=== PATIENT | male | born 1990 | race Caucasian/White ===

== ENCOUNTER 2025-03-13 08:35 | Emergency (ER) | payer OTHER, SELFPAY ==
--- NOTE | 2025-03-13 08:36 | ED_ITS ---
HPI - URI/Sore Throat General Chief Complaint: Upper Respiratory Infection Stated Complaint: Sinus Time Seen by Provider: 03/13/25 08:36 Source: patient Mode of arrival: ambulatory Limitations: no limitations History of Present Illness HPI Narrative: Patient is a 34-year-old male who presents with 3 weeks of of sinus pressure. Patient was seen by PCP over week ago and was told take allergy medicine and use nasal sprays. Patient states since then his symptoms have worsened and now has sore throat and productive cough. Denies any fever, chills, nausea, vomiting, diarrhea. Related Data Home Medications ?Medication ?Instructions ?Recorded ?Confirmed ?Last Taken ?Type bupropion HCl 300 mg 24 hr tablet, mg PO 03/13/25 Unk nown History extended release Allergies Allergy/AdvReac Type Severity Reaction Status Date / Time No Known Allergies Allergy Verified 03/13/25 09:11 Review of Systems Review of Systems: All systems reviewed & are unremarkable except as noted in HPI and below Constitutional: Constitutional: Denies chills, Denies fatigue, Denies fever(s), Denies headache(s), Denies malaise and Denies weakness Eyes: Eyes: Denies blurry vision, Denies itchy eyes and Denies loss of vision ENT: Denies otalgia, Denies headache(s), Reports nasal congestion, Denies sinus pain, Reports sinus pressure and Reports sore throat Cardiovascular: Cardiovascular: Denies chest pain, Denies irregular heart rhythm and Denies dyspnea Respiratory: Respiratory: Reports cough and Denies dyspnea Gastrointestinal: Gastrointestinal: Denies abdominal pain, Denies diarrhea, Denies nausea and Denies vomiting Musculoskeletal: Musculoskeletal: Denies back pain, Denies myalgias and Denies arthralgias Integumentary/Breasts: Skin/Breast: Denies pruritus and Denies rash Neurologic: Denies headache(s), Denies loss of vision and Denies weakness Psychiatric: Psychiatric: Reports no additional psychiatric complaints Endocrine: Endocrine: Denies fatigue Allergic/Immunologic: Allergic/Immunologic: Denies itchy eyes PMFSH Comments At time of signature, agree with nursing past medical, surgical, social and family history. There is no relevant family history pertinent to the presenting complaint. Exam Const: General: cooperative, healthy appearing, comfortable, no acute distress and well nourished Nutritional Appearance: well nourished Orientation/consciousness: patient oriented x3 Limitations: no limitations HENMT: Head: normal to inspection, normocephalic and atraumatic Ears: hearing grossly normal bilaterally, external ears normal, TM's normal bilaterally, EAC's normal and no periauricular adenopathy Face/Nose/Sinus: Normal external nose present, Abnormal mucous membranes and turbinates present erythematous bilateral and diffuse, normal facial exam and face symmetric Face and sinus: normal facial exam, face symmetric and sinus tenderness Mouth: Yes Normal oral and palatal mucosa present, Yes lip normal, Yes tongue normal, Yes Normal salivary glands and ducts present, Yes oropharynx normal and Yes moist mucous membranes Teeth and gingiva: dentition normal Throat: posterior oropharynx normal, tonsils normal and uvula midline Eyes: General: appearance normal, both eyes and all related structures Alignment and Position: alignment normal and position normal Periorbital: periorbital findings normal Eyelids: eyelids normal Pupils: Equal, round and reactive pupils present Neck: Neck: normal visual inspection, full ROM, no lymphadenopathy and supple Chest: Chest palpation & inspection: normal inspection of the chest and normal palpation of entire chest wall Resp: Effort & Inspection: normal respiratory effort and able to speak in complete sentences Auscultation: clear to auscultation bilaterally, no crackles, no rales, no rhonchi and no wheezes Cardio: Rate: regular rate Rhythm: regular rhythm Heart sounds: S1 normal heart sound present and S2 normal heart sound present GI: Inspection: normal to inspection Skin: General skin exam: normal color and no rashes or lesions noted Neuro: General: patient oriented x3 and moves all extremities Cranial nerves: Yes Equal, round and reactive pupils present Speech: normal speech Gait exam (Neuro): Normal gait present Extrem: General: normal to inspection, full ROM and no edema Psych: Appearance: grossly normal and well kempt Mental Status: mental status grossly normal Speech and movement: Normal speech and movement present Affect: normal affect Attitude: cooperative Thought process: Normal thought process present Course Course Emergency Course: Discharge instructions reviewed with patient, as well as provided in writing per nursing staff. The instructions also include specific and strict return/GO TO THE ER as well as f/u information. All questions have been answered, and the patient deny any further questions with discharge and discharge plan. Portions of this record may have been created with voice recognition software Level of Care: Express Care Visit Vital Signs Vital signs: Reviewed [facility] - URI/Sore Throat MDM Narrative Medical decision making narrative: Pt well hydrated appearing, in no respiratory distress, hemodynamically stable. Recommend supportive care. The patient is stable at time of discharge the clinical impression was discussed and the patient was given the opportunity to ask questions, which were addressed as completely as possible given the information available at present. Anticipatory guidance and return to care precautions were discussed and the importance of primary care follow-up was stressed and encouraged. The patient voiced understanding of the plan, indications to return, and the need for follow-up. Exam findings show no acute concerns or changes Patient is appropriate for outpatient treatment and follow-up. Differential diagnosis considered: Diaz virus, strep pharyngitis, allergic rhinitis, upper respiratory tract infection, sinusitis, rhinosinusitis, nasopharyngitis. viral pharyngitis, otitis media, otitis externa, otitis effusion, foreign body, cerumen impaction, viral syndrome, and influenza.? Discharge Plan Discharge Clinical Impression: Upper respiratory infection with cough and congestion, Bacterial infection Patient Disposition: Home Condition: Stable Instructions: Upper Respiratory Infection (ED) Additional Instructions: Take antibiotic as prescribed. Take steroids in the morning with food. Use Tessalon Perles as needed for cough. Use nebulizer as needed. Other symptomatic treatments include: -Alternate Tylenol and Motrin per package directions for fever or pain: Tylenol 650-1000mg by mouth every 4-6 hours. Do not exceed 4000mg in 24 hours. Advil (Ibuprofen) 600 mg by mouth every 6 hours. Do not exceed 2400mg in 24 hours. 8 AM: Tylenol 11 AM: Ibuprofen 2 PM: Tylenol 5 PM: Ibuprofen 8 PM: Tylenol 11 PM: Ibuprofen 2 AM: Tylenol 5 AM: Ibuprofen -Antihistamine medication such as Benadryl at night and Zyrtec/Claritin/Tasha during the day can help improve symptoms. -Use Flonase twice a day for 5 days then daily to help reduce the inflammation and dry up your sinuses. -You can also use Sudafed or Mucinex. Be sure to drink plenty of water with these medications at least 8 ounces with every dose and it is important to drink 8 to 10 glasses of water per day. Water is a natural decongestant -Eat and drink things that are easy to swallow, like tea or soup, or popsicles. -Oral rinses such as: Salt water gargles and/or may use topical anesthetic (eg. Chloraseptic spray) or lozenges to relieve dryness or throat pain). -Frequent hand washing or hand cloth tester is one of the best ways to prevent spread of infection. -Using a vaporizer or humidifier at night will also help thin secretions and help with coughing up phlegm. Call your Primary Care Doctor and make a follow-up appointment in 3 days. If your cough worsens, you develop a fever greater than 103, you develop shaking chills, a fast heartbeat, trouble breathing and/or feel you are are breathing much faster than usual, call your Primary Care Doctor or go to the ER. Patient Language: Wallisian Prescriptions: New albuterol sulfate 2.5 mg /3 mL (0.083 %) solution for nebulization 2.5 mg inhalation Q6H Qty: 90 0RF prednisone 20 mg tablet 40 mg PO DAILY 5 Days Qty: 10 0RF benzonatate 100 mg capsule 100 mg PO BID PRN (Reason: cough) Qty: 14 0RF amoxicillin-pot clavulanate 875-125 mg tablet 1 tablet PO Q12H 10 Days Qty: 20 0RF No Action No Home Medications Follow-up/Referrals: Humza Doe MD [Physician, Ear, Nose, Throat] - 3 Days Mohsen Connolly MD [Physician, Family Practice] - 3 Days Time of Disposition: 09:13
[2025-03-13 08:47] VITALS: BP 126/93; PULSE 66; RESP 16; TEMP 36.5; O2SAT 100
== END 2025-03-13 09:20 | disposition home or self-care (01) ==
PROVIDERS: Emergency Provider Nurse Practitioner Family
DX: J06.9 Acute upper respiratory infection, unspecified (principal); R05.9 Cough, unspecified; B96.89 Other specified bacterial agents as the cause of diseases classified elsewhere
CPT/HCPCS: 99203; G0463

== ENCOUNTER 2025-03-29 15:50 | Emergency (ER) | payer OTHER, SELFPAY ==
[2025-03-29 16:04] VITALS: BP 118/83; PULSE 90; RESP 16; TEMP 37; O2SAT 97
--- NOTE | 2025-03-29 16:40 | ED.URI ---
HPI - URI/Sore Throat General Chief Complaint: Upper Respiratory Infection Stated Complaint: Sinus patient presents to the Care accompanied by family daughters so patient expressed care with of significant return of sinus pressure on left side, nasal congestion, fatigue, and headaches with productive cough. Patient reports recently treated for a sinus infection and completed medications. Noted he does have a history of a deviated septum on this left side he continues to have chronic problems with sinus infections. Reports getting in a nasal spray from the pharmacy and did use that but reports this is draining into the back of his throat unsure if he got the rate nasal spray. Denies fever, chills, body aches, dizziness, shortness of breath, sore throat, difficulty swallowing. Related Data Home Medications ?Medication ?Instructions ?Recorded ?Confirmed ?Last Taken ?Type bupropion HCl 300 mg 24 hr tablet, mg PO 03/13/25 Unknown History extended release Allergies Allergy/AdvReac Type Severity Reaction Status Date / Time No Known Allergies Allergy Verified 03/29/25 16:30 Review of Systems Constitutional: Constitutional: Reports as per HPI, Denies chills, Reports fatigue, Denies fever(s) and Denies weakness Eyes: Eyes: Reports no additional eye complaints ENT: Reports as per HPI, Denies vertigo, Denies dizziness, Reports nasal congestion and Denies sore throat Comments: sinus pain left sided Cardiovascular: Cardiovascular: Reports no additional cardiovascular complaints Respiratory: Respiratory: Reports as per HPI, Reports chest congestion, Reports cough, Denies dyspnea and Denies wheezing Gastrointestinal: Gastrointestinal: Reports as per HPI, Denies diarrhea, Denies nausea and Denies vomiting Genitourinary: Genitourinary: Reports no additional male genitourinary complaints Musculoskeletal: Musculoskeletal: Reports as per HPI, Denies back pain and Denies myalgias Integumentary/Breasts: Skin/Breast: Reports as per HPI, Denies erythema and Denies rash Neurologic: Reports as per HPI, Denies vertigo, Denies dizziness, Reports headache(s) and Denies weakness Psychiatric: Psychiatric: Reports no additional psychiatric complaints Endocrine: Endocrine: Reports no additional endocrine complaints Hematologic/Lymphatic: Hematologic/Lymphatic: Reports no additional hematologic/lymphatic complaints Allergic/Immunologic: Allergic/Immunologic: Reports as per HPI Comments: seasonal allergies, chronic sinusitis Course Course Level of Care: Express Care Visit Vital Signs Vital signs: Vital Signs Temperature 98.6 F 03/29/25 16:04 Pulse Rate 90 03/29/25 16:04 Respiratory Rate 16 03/29/25 16:04 Blood Pressure 118/83 03/29/25 16:04 Pulse Oximetry 97 03/29/25 16:04 Oxygen Delivery Room Air 03/29/25 16:04 Temperature 98.6 F 03/29/25 16:04 Pulse Rate 90 03/29/25 16:04 Respiratory Rate 16 03/29/25 16:04 Blood Pressure 118/83 03/29/25 16:04 Pulse Oximetry 97 03/29/25 16:04 Oxygen Delivery Room Air 03/29/25 16:04 MDM - URI/Sore Throat MDM Narrative Medical decision making narrative: Possible need for follow-up with ENT. Likely needs treatment with a different antibiotic. [facility] History is obtained from patient who is an independent historian and physical exam was performed. Available medical records were reviewed at this time. Exam findings show no acute concerns or changes; patient is non-toxic appearing and is in no distress. Patient is appropriate for outpatient treatment and follow-up. I have evaluated and discussed social determinants of health with the patient that could potentially impact subsequent diagnosis and treatment plans. Differential diagnosis and treatment plan were discussed with the patient. Patient agrees with discussion and after shared medical decision making agrees with plan of care. All questions were answered to the patient's satisfaction. Differential Diagnosis Differential diagnosis: Likely upper respiratory infection, croup, otitis media, sinusitis, viral infection, influenza and pharyngitis Medical Records Attestation: I reviewed the patient's medical records. Lab Data Attestation: I reviewed the patient's lab results. Discharge Plan Discharge Clinical Impression: Sinusitis Patient Disposition: Home Condition: Stable Instructions: Antibiotic Form, Sinusitis (ED) Additional Instructions: Take the antibiotics as directed for the entire course. Do not miss any doses. What you are taking antibiotics and is recommended to take a probiotic or have yogurt daily to return the good gut bacteria to your system. This can also help with acute diarrhea while taking antibiotics. A can take 24-48 hours for the antibiotics the cake in to relieve your symptoms continue to take these medications to help with various symptoms: Tylenol or Motrin for pain, headache, or fever Flonase/fluticasone or Nasacort/triamcinolone nasal spray- helps with congestion and nasal drainage. Sudafed/pseudoephedrine helps with sinus pain and congestion. Caution with high blood pressure. Use a humidifier or vaporizer at night. Drink plenty of water. 8-10 glasses per day. Mucinex/[place] directed and be sure to take with 8oz of water. Warm compresses over the forehead and cheeks to promote sinus drainage. Return to urgent care or go to the ER for new or worsening symptoms. Follow up with Primary provider if not improved after 1 week. Patient Language: Yoruba Prescriptions: New benzonatate 200 mg capsule 200 mg PO TID PRN (Reason: cough) Qty: 30 0RF doxycycline monohydrate 100 mg capsule 100 mg PO BID Qty: 20 0RF pseudoephedrine HCl [Sudafed] 30 mg tablet 30 mg PO Q4-6H PRN (Reason: nasal congestion) Qty: 24 0RF Rx Instructions: DNExceed 4 doses/24h fluticasone propionate [Allergy Relief (fluticasone)] 50 mcg/actuation spray,suspension 2 spray intranasal DAILY Qty: 16 0RF Rx Instructions: administer into each nostril No Action albuterol sulfate 2.5 mg /3 mL (0.083 %) solution for nebulization 2.5 mg inhalation Q6H Qty: 90 0RF benzonatate 100 mg capsule 100 mg PO BID PRN (Reason: cough) Qty: 14 0RF bupropion HCl 300 mg tablet extended release 24 hr PO Follow-up/Referrals: [facility] [Primary Care Provider, Medical] Time of Disposition: 16:45
[2025-03-29 16:48] LABS: EDCOVIDSCREEN Negative (Negative)
== END 2025-03-29 16:52 | disposition home or self-care (01) ==
PROVIDERS: Emergency Provider Nurse Practitioner Family
DX: J32.9 Chronic sinusitis, unspecified (principal); Z20.822 Contact with and (suspected) exposure to COVID-19
CPT/HCPCS: 87426; 99213; G0463

== ENCOUNTER 2025-06-21 08:10 | Emergency (ER) | payer OTHER, SELFPAY ==
[2025-06-21 08:10] VITALS: BP 126/82; PULSE 113; RESP 20; TEMP 37.7; O2SAT 97
--- NOTE | 2025-06-21 08:12 | ED.URI ---
HPI - URI/Sore Throat General Chief Complaint: Upper Respiratory Infection Stated Complaint: flu symptoms Time Seen by Provider: 06/21/25 08:11 Source: patient Mode of arrival: ambulatory Limitations: no limitations History of Present Illness HPI Narrative: Marcin is a 34-year-old male patient presenting to the clinic today with complaints of flu-like symptoms. He reports he has cough, runny nose, fatigue, body aches, and diarrhea since last night. Took tylenol last night. Was in the ED with his daughter two days ago for vomiting and dirrhea. He denies any chest pain or shortness of breath. Related Data Home Medications ?Medication ?Instructions ?Recorded ?Confirmed ?Last Taken ?Type bupropion HCl 300 mg 24 hr tablet, mg PO 03/13/25 Unknown History extended release Allergies Allergy/AdvReac Type Severity Reaction Status Date / Time No Known Allergies Allergy Verified 06/21/25 08:13 Review of Systems Review of Systems: Pertinent positives per HPI. Patient denies any fever, chills, rash, headache, visual changes, dizziness, sore throat, shortness of breath, chest pain, palpitations, nausea, vomiting, constipation, abdominal pain, or any urinary issues. PMFSH Comments At the time of my signature, I reviewed and agree with the nursing past medical, surgical, social, and family history. There is no relevant family history pertinent to the patient complaint. Exam Narrative: General: Well-developed, well nourished, acutely ill-appearing Head: Normocephalic, atraumatic Eyes: Pupils equally round and reactive to light bilaterally, EOM intact, sclera and conjunctive clear, no discharge, lids normal Ears: TMs intact and clear, ear canals ceruminous, no drainage, grossly hearing normal. Nose: Nares patent, clear nasal discharge, mild inflammation, no sinus tenderness. Mouth: Oropharynx without lesions or masses, good dentition, MMM. Postnasal drip Neck: Supple, trachea midline, no enlargement of anterior or posterior cervical nodes, no thyroid masses or goiter palpable. Cardio: Regular rate and rhythm, s1 and s2 normal, no murmur appreciated. Resp: Clear to auscultation bilaterally anteriorly and posteriorly, no rhonchi, rales, wheezing or rubs Abdomen: Soft, pliable, bowel sounds present in all quadrants, non-tender to palpation, no organomegly, no CVAT tenderness. Course Course Level of Care: Express Care Visit Vital Signs Vital signs: Vital Signs Temperature 37.7 C H 06/21/25 08:10 Pulse Rate 113 H 06/21/25 08:10 Respiratory Rate 20 06/21/25 08:10 Blood Pressure 126/82 06/21/25 08:10 Pulse Oximetry 97 06/21/25 08:10 Oxygen Delivery Room Air 06/21/25 08:10 Temperature 37.7 C H 06/21/25 08:10 Pulse Rate 113 H 06/21/25 08:10 Respiratory Rate 20 06/21/25 08:10 Blood Pressure 126/82 06/21/25 08:10 Pulse Oximetry 97 06/21/25 08:10 Oxygen Delivery Room Air 06/21/25 08:10 MDM MDM Narrative Medical decision making narrative: At the time of visit patient is resting comfortably on the exam table. Patient appears to be nontoxic. Complaints of flu-like symptoms. He reports he has cough, runny nose, fatigue, body aches, and diarrhea since last night. Took tylenol last night. Was in the ED with his daughter two days ago for vomiting and diarrhea. He denies any chest pain or shortness of breath. On exam patient has bilateral TMs intact and clear, ear canals ceruminous, clear nasal drainage, mild anterior turbinate inflammation, oropharynx with postnasal drip, no cervical lymphadenopathy, lung sounds are clear, heart rates tachycardic but regular rate and rhythm. Abdomen soft, pliable, nondistended, nontender to palpation. COVID and influenza testing was ordered. Labs: COVID and influenza testing was performed and was negative in the clinic today. Plan: I suspect patient has URI/viral syndrome. Work note was given. Supportive measures were discussed with the patient and they voiced understanding discharge instructions and agrees to treatment plan. Return precautions reviewed Differential Diagnosis Differential Diagnosis: Differential diagnostic considerations for upper respiratory infection include upper respiratory infection, croup, otitis media, sinusitis, viral infection, bronchitis, influenza, pharyngitis, strep, uvulitis. Lab Data Labs: Lab Results 06/21/25 Range/Units 08:18 POC Influenza A Ag Pending POC Influenza B Ag Pending POC SARS CoV-2 Ag Pending Discharge Plan Discharge Clinical Impression: Viral infection Upper respiratory infection Qualifiers: URI type: unspecified URI Qualified Code(s): J06.9 - Acute upper respiratory infection, unspecified Patient Disposition: Home Condition: Stable Instructions: Antibiotic Form, Upper Respiratory Infection (ED), Viral Syndrome (ED) Additional Instructions: COVID and influenza testing was negative-testing may be too early sent her symptoms just started last night. May take DayQuil/NyQuil for cold/flu symptoms Increase fluids and stay well hydrated May take Tylenol or motrin as directed on bottle for pain/fever May use Flonase 1 spray in each nare daily May take OTC antihistamines such as Zyrtec or Claritin daily as directed on bottle May apply Vicks vapor rub to chest to open sinuses Sinus rinses for congestion Cepacol spray, cough drops, throat lozenges, warm tea with honey/lemon, gargle salt water to soothe throat BRAT diet for diarrhea May take Imodium for diarrhea as directed on bottle as long as there is no blood in your stool. Clear liquids x 24 hours then advance as tolerated for nausea/vomiting Go to the ED if you develop a worsening in your condition- high fever not controlled by Tylenol or Motrin, dehydration, weakness, lethargy, shortness of breath, or chest pain. Follow up with your PCP in 3-5 days if symptoms persist. Patient Language: Amharic Prescriptions: No Action bupropion HCl 300 mg tablet extended release 24 hr PO Follow-up/Referrals: UNKNOWN,DOCTOR [Non-Staff] Stand Alone Forms: Work/School Release IP Time of Disposition: 08:33 Quality NIHSS Nursing Documentation ED NIHSS nursing documentation: reviewed/agree
[2025-06-21 08:40] LABS: EDCOVIDSCREEN Negative (Negative); EDINFLUASCREEN Negative (Negative); EDINFLUBSCREEN Negative (Negative)
== END 2025-06-21 08:43 | disposition home or self-care (01) ==
PROVIDERS: Emergency Provider Nurse Practitioner Family
DX: B34.9 Viral infection, unspecified (principal); J06.9 Acute upper respiratory infection, unspecified; Z20.822 Contact with and (suspected) exposure to COVID-19
CPT/HCPCS: 87426; 87804; 99212; G0463